=== PATIENT | male | born 1965 | race Caucasian/White ===

== ENCOUNTER → 2016-05-27 | Outpatient (CLI) | payer BC ==
[2016-05-27 08:09] LABS: HEMOGLOBIN 15.1 gm/dl (14.0-17.5); RED BLOOD COUNT 4.82 M/UL (4.20-5.50); WHITE BLOOD COUNT 4.9 K/UL (4.5-11.0)
[2016-05-27 08:12] LABS: BUN/CREATININE RATIO 19 (0-10)
== END ==
LOC: LAB 07:16
PROVIDERS: Nurse Practitioner Family
DX: E11.9 Type 2 diabetes mellitus without complications (principal)
CPT/HCPCS: 80053; 80061; 82043; 83036; 85025

== ENCOUNTER → 2016-07-03 | Outpatient (CLI) | payer BC, SELFPAY | END | disposition home or self-care (01) | LOC: HEART 5 09:37 | DX: I73.9 Peripheral vascular disease, unspecified (principal) ==

== ENCOUNTER → 2016-08-12 | Outpatient (CLI) | payer BC | LOC: LAB 11:39 | DX: Z12.5 Encounter for screening for malignant neoplasm of prostate (principal) | CPT/HCPCS: 84153 ==

== ENCOUNTER 2016-08-22 08:30 | Emergency (ER) | payer BC, OTHER | END 2016-08-22 14:08 | disposition home or self-care (01) | LOC: ER1 08:30 | DX: I83.023 Varicose veins of left lower extremity with ulcer of ankle (principal) | CPT/HCPCS: 99283 ==

== ENCOUNTER → 2016-08-28 | Outpatient (CLI) | payer BC, OTHER | LOC: HEART 5 07:42 | DX: R07.9 Chest pain, unspecified (principal) | CPT/HCPCS: 78452; A9502 ==

== ENCOUNTER → 2020-03-13 | Outpatient (CLI) | payer BC, OTHER ==
[~2020-03-13] MED LIST: ELIQUIS2.5 MG PO; LOPRESSOR 25 MG25 MG PO; OMEPRAZOLE20 MG PO; RYTHMOL TAB 15150 MG PO; TOPROL XL25 MG PO
[2020-03-13 11:54] LABS: BUN/CREATININE RATIO 15 (0-10)
== END ==
LOC: LAB 10:44
PROVIDERS: Family Medicine
DX: R73.02 Impaired glucose tolerance (oral) (principal); R39.12 Poor urinary stream
CPT/HCPCS: 36415; 80053; 80061; 83036; 84153

== ENCOUNTER → 2020-12-31 | Outpatient (CLI) | payer BC | LOC: EXRD 11:19 | DX: R31.9 Hematuria, unspecified (principal) | CPT/HCPCS: 76775; 76857 ==